=== PATIENT | female | born 1990 | race Caucasian/White ===

== ENCOUNTER 2016-09-19 12:51 | Emergency (ER) | payer OTHER ==
[~2016-09-19] VITALS: Ht 162.6 cm; Wt 76.4 kg
[~2016-09-19 12:51] MED LIST: PRENTAB26 PO; SERT50TA PO
[2016-09-19 12:58] VITALS: TEMP 36.8; Ht 162.6 cm; Wt 76.4 kg
[2016-09-19] MEDS ORDERED: FLUO20CA35 PO (13:05)
[2016-09-19] MEDS ORDERED: BUPR-79 PO (13:05)
[2016-09-19] MEDS ORDERED: KETOROLAC TROMETHAMINE 30 MG/ML VIAL IV STA (13:14)
[2016-09-19] MEDS ORDERED: ONDANSETRON INJ 2 MG/ML 2 ML VIAL IV STA (13:14)
[2016-09-19] MEDS ORDERED: SODIUM CHLORIDE 0.9% 1000ML 1,000 ML IV ONE (13:15)
[2016-09-19 13:45] LABS: BASO % 0.1 %; BASO ABS # 0.01 K/uL (0-0.2); COMPLETE YES; HEMATOCRIT 41.2 % (37-47); IG% 0.3 %; LYMPH % 31.3 %; LYMPH ABS # 2.18 K/uL (1.2-3.4); MEAN CELL VOLUME 83.4 fL (80-100); MEAN CORPUSCULAR HEMOGLOBIN 28.1 pg (25-34); MEAN CORPUSCULAR HGB CONC 33.7 g/dl (32-36); MEAN PLATELET VOLUME 10.5 fL (7.4-10.4); MONO % 7.8 %; NEUT % 59.5 %; PLATELET COUNT 269 K/uL (130-400); RED BLOOD COUNT 4.94 M/uL (4.2-5.4); WHITE BLOOD COUNT 6.96 K/uL (4.8-10.8)
[2016-09-19 14:02] LABS: BUN/CREATININE RATIO 12.8 (10-20); CALCIUM 9.3 mg/dl (8.5-10.1); CREATININE 0.69 mg/dl (0.60-1.20); POTASSIUM 4.1 mmol/L (3.5-5.1)
[2016-09-19 14:05] LABS: ALB/GLOB RATIO 1.1 (0.9-2)
--- NOTE | 2016-09-19 14:08 | DIAGNOSTIC IMAGING REPORT ---
KUB CLINICAL HISTORY: LLQ abd pain pain. Nausea. COMPARISON STUDY: No previous studies for comparison. FINDINGS: The soft tissues, psoas shadows, renal outlines and intestinal gas pattern appear normal. There is no evidence for bowel obstruction. No abnormal abdominal calcifications are seen. IMPRESSION: Normal study. Electronically signed by: Dante Mandujano M.D. 09/19/2016 2:06 PM Dictated Date/Time: 09/19/2016 2:06 PM
[2016-09-19 14:36] LABS: URINE APPEARANCE CLEAR (CLEAR); URINE BILIRUBIN NEG (NEG); URINE COLOR YELLOW; URINE NITRITE NEG (NEG); URINE PH 8.5 (4.5-7.5); URINE SPECIFIC GRAVITY 1.008 (1.000-1.030); UROBILINOGEN NEG (NEG); ZZUR CULT IF INDIC CLEAN CATCH NO
[2016-09-19 14:41] LABS: MANUAL MICROSCOPIC REQUIRED? NO; REVIEW REQ? NO
--- NOTE | 2016-09-19 15:33 | DIAGNOSTIC IMAGING REPORT ---
EXAMINATION: PELVIC ULTRASOUND CLINICAL HISTORY: LLQ abd pain PAIN COMPARISON STUDY: 07/22/2014 FINDINGS: The uterus measured 7.3 cm. The endometrial stripe measured 7 mm. The right ovary measured prior removal. The left ovary measured 3.8 cm maximum dimension. 1.7 cm follicular cyst. Normal vascular flow.. There is no ultrasonographic evidence of ovarian torsion. It should be noted that ovarian torsion can be present with normal Doppler ultrasonographic findings. There was no evidence of pathologic free pelvic fluid. IMPRESSION: 1. 1.7 cm follicular cyst left ovary. 2. Otherwise negative pelvic ultrasound post right ovarian removal Electronically signed by: Dante Mandujano M.D. 09/19/2016 3:31 PM Dictated Date/Time: 09/19/2016 3:30 PM
[2016-09-19] MEDS ORDERED: HYDR-5688 PO (15:53)
[2016-09-19 16:03] VITALS: BP 120/65; PULSE 68; O2SAT 97
--- NOTE | 2016-09-19 21:52 | EMERGENCY ROOM VISIT NOTE ---
History First contact with patient: 13:02 Chief Complaint: ABDOMINAL PAIN Stated Complaint: PAIN IN LOWER L STOMACH, DIZZY Nursing Triage Summary: Pt presents with left lower abd pain x 1 month. "I track my fertility and the pain would coordinate with when my body was trying to ovulate. I only have one ovary and it's on that side." Nausea, dizziness. History of Present Illness The patient is a 26 year old female who presents to the Emergency Room with complaints of pain in the left lower aspect of her abdomen for the past one month. The patient has a history of ovarian cysts and had a right oophorectomy a few years ago. The patient states that her discomfort does wax and wane, and may be related to her period. The patient is nauseated without vomiting. She is not having vaginal drainage or discharge. She has not taken anything over- the-counter for her symptoms. Review of Systems More than 10 systems were reviewed and otherwise negative with the exception of history of present illness. Past Medical/Surgical History Medical Problems: (1) Ovarian cyst, left Family History Cancer Heart disease Hypertension Lung disease Social History Smoking Status: Never Smoker Alcohol Use: occasionally Marital Status: Housing Status: lives with significant other Occupation Status: employed Current/Historical Medications Scheduled Bupropion (Wellbutrin Sr), 150 MG PO DAILY Fluoxetine (Prozac), 30 MG PO QAM Scheduled PRN Hydrocodone/Acetaminophen 5MG/325MG (Virden 5MG/325MG), 1 TABLET PO Q6 PRN for Pain Allergies Coded Allergies: Penicillins (Verified Allergy, Intermediate, SWELLING, 03/04/15) Cefprozil (Verified Allergy, Unknown, ., 07/22/14) Physical Exam Vital Signs Date Time Temp Pulse Resp B/P Pulse Ox O2 Delivery O2 Flow Rate FiO2 09/19/16 16:03 68 18 120/65 97 Room Air 09/19/16 14:50 70 16 120/65 98 Room Air 09/19/16 12:58 36.8 75 18 123/82 98 Room Air Pain Rating (0-10): 2.0 Physical Exam VITALS: Vitals are noted on the nurse's note and reviewed by myself. Vital signs stable. GENERAL: Well-developed, well-nourished, white female, who is in no acute distress and resting comfortably. Patient is cooperative with the examination. HEAD: Normocephalic atraumatic. NECK: Supple without nuchal rigidity. No lymphadenopathy. No thyromegaly. Cervical spine is nontender. HEART: Regular rate and rhythm without murmurs gallops or rubs. LUNGS: Clear to auscultation bilaterally without wheezes, rales or rhonchi. No retractions or accessory muscle use. ABDOMEN: Positive normal bowel sounds x 4. Soft with mild left lower quadrant tenderness on palpation. No guarding. No CVA tenderness. MUSCULOSKELETAL: No muscle atrophy, erythema, or edema noted. Full range of motion without joint tenderness in all extremities Medical Decision & Procedures ER Provider Diagnostic Interpretation: KUB CLINICAL HISTORY: LLQ abd pain pain. Nausea. COMPARISON STUDY: No previous studies for comparison. FINDINGS: The soft tissues, psoas shadows, renal outlines and intestinal gas pattern appear normal. There is no evidence for bowel obstruction. No abnormal abdominal calcifications are seen. IMPRESSION: Normal study. EXAMINATION: PELVIC ULTRASOUND CLINICAL HISTORY: LLQ abd pain PAIN COMPARISON STUDY: 07/22/2014 FINDINGS: The uterus measured 7.3 cm. The endometrial stripe measured 7 mm. The right ovary measured prior removal. The left ovary measured 3.8 cm maximum dimension. 1.7 cm follicular cyst. Normal vascular flow.. There is no ultrasonographic evidence of ovarian torsion. It should be noted that ovarian torsion can be present with normal Doppler ultrasonographic findings. There was no evidence of pathologic free pelvic fluid. IMPRESSION: 1. 1.7 cm follicular cyst left ovary. 2. Otherwise negative pelvic ultrasound post right ovarian removal Laboratory Results 09/19/16 13:30 Red Blood Count 4.94, Mean Corpuscular Volume 83.4, Mean Corpuscular Hemoglobin 28.1, Mean Corpuscular Hemoglobin Concent 33.7, Mean Platelet Volume 10.5, Neutrophils (%) (Auto) 59.5, Lymphocytes (%) (Auto) 31.3, Monocytes (%) (Auto) 7.8, Eosinophils (%) (Auto) 1.0, Basophils (%) (Auto) 0.1, Neutrophils # (Auto) 4.14, Lymphocytes # (Auto) 2.18, Monocytes # (Auto) 0.54, Eosinophils # (Auto) 0.07, Basophils # (Auto) 0.01 09/19/16 13:30 Test 09/19/16 13:30 White Blood Count 6.96 K/uL (4.8-10.8) Red Blood Count 4.94 M/uL (4.2-5.4) Hemoglobin 13.9 g/dL (12.0-16.0) Hematocrit 41.2 % (37-47) Mean Corpuscular Volume 83.4 fL (80-100) Mean Corpuscular Hemoglobin 28.1 pg (25-34) Mean Corpuscular Hemoglobin Concent 33.7 g/dl (32-36) Platelet Count 269 K/uL (130-400) Mean Platelet Volume 10.5 fL (7.4-10.4) Neutrophils (%) (Auto) 59.5 % Lymphocytes (%) (Auto) 31.3 % Monocytes (%) (Auto) 7.8 % Eosinophils (%) (Auto) 1.0 % Basophils (%) (Auto) 0.1 % Neutrophils # (Auto) 4.14 K/uL (1.4-6.5) Lymphocytes # (Auto) 2.18 K/uL (1.2-3.4) Monocytes # (Auto) 0.54 K/uL (0.11-0.59) Eosinophils # (Auto) 0.07 K/uL (0-0.5) Basophils # (Auto) 0.01 K/uL (0-0.2) RDW Standard Deviation 40.9 fL (36.4-46.3) RDW Coefficient of Variation 13.4 % (11.5-14.5) Immature Granulocyte % (Auto) 0.3 % Immature Granulocyte # (Auto) 0.02 K/uL (0.00-0.02) Urine Color YELLOW Urine Appearance CLEAR (CLEAR) Urine pH 8.5 (4.5-7.5) Urine Specific [place] 1.008 (1.000-1.030) Urine Protein NEG (NEG) Urine Glucose (UA) NEG (NEG) Urine Ketones NEG (NEG) Urine Occult Blood NEG (NEG) Urine Nitrite NEG (NEG) Urine Bilirubin NEG (NEG) Urine Urobilinogen NEG (NEG) Urine Leukocyte Esterase NEG (NEG) Urine Test NEG (NEG) Anion Gap 8.0 mmol/L (3-11) Est Creatinine Clear Calc Drug Dose 122.6 ml/min Estimated GFR () 138.3 Estimated GFR (Non- 119.3 BUN/Creatinine Ratio 12.8 (10-20) Calcium Level 9.3 mg/dl (8.5-10.1) Total Bilirubin 0.3 mg/dl (0.2-1) Aspartate Amino Transf (AST/SGOT) 11 U/L (15-37) Alanine Aminotransferase (ALT/SGPT) 19 U/L (12-78) Alkaline Phosphatase 96 U/L (45-117) Total Protein 7.5 gm/dl (6.4-8.2) Albumin 3.9 gm/dl (3.4-5.0) Globulin 3.6 gm/dl (2.5-4.0) Albumin/Globulin Ratio 1.1 (0.9-2) Medications Administered Medications (Trade) Dose Ordered Sig/Torie Route Start Time Stop Time Status Last Admin Dose Admin Sodium Chloride (Nss 1000ml) 1,000 ml @ 999 mls/hr Q1H1M ONCE IV 09/19/16 13:15 09/19/16 14:15 DC 09/19/16 13:15 999 MLS/HR Ketorolac Tromethamine (Toradol Inj) 30 mg NOW STAT IV 09/19/16 13:14 09/19/16 13:18 DC 09/19/16 13:46 30 MG Ondansetron HCl (Zofran Inj) 4 mg NOW STAT IV 09/19/16 13:14 09/19/16 13:18 DC 09/19/16 13:45 4 MG ED Course Physical exam and history were performed. Nursing notes and EMR were reviewed. Patient appears to have left lower quadrant abdominal pain for the past month. On exam she does not present like a distinct surgical abdomen. IV access was established and labs were obtained. Patient was hydrated with a as above. I did elect to perform an ultrasound and KUB to evaluate the patient's symptoms. The patient's blood work is as above and was reviewed. She does not have a slightly elevated white blood cell count, gross anemia, bandemia, or significant ocular imbalance. X-ray does not show evidence of an obstructive process. Ultrasound does reveal a left ovarian cyst, which clinically correlates very well with the patient's symptoms. Repeat abdominal examination does not show any worsening or progression of the patient's symptoms. She is overall felt to be stable for discharge home. I recommend she follow with either her primary care physician or with [facility] for further management. She was given further discharge instructions as below and otherwise invited back to the ER with any new, worsening, or concerning symptoms. The chart was completed utilizing [employer] Voice Recognition Software. Grammatical errors, random word insertions, pronoun errors, and incomplete sentences are an occasional consequence of this system due to software limitations, ambient noise, and hardware issues. Any formal questions or concerns about the content, text, or information contained within the body of this dictation should be directly addressed to the provider for clarification. . Medical Decision Differential diagnosis: Etiologies such as appendicitis, diverticulitis, PUD, biliary pathology, UTI, pancreatitis, obstruction, mesenteric ischemia, aortic pathology, infections, inflammatory bowel disease, renal colic, as well as others were entertained. Impression Primary Impression: Left ovarian cyst Departure Information Dispostion Home / Self-Care Condition GOOD Prescriptions Hydrocodone/Acetaminophen 5MG/325MG (Virden 5MG/325MG) Tab 1 TABLET PO Q6 Y for Pain, #12 TAB For Initial Treatment Prov: Marvin Downey PA-C 09/19/16 Forms HOME CARE DOCUMENTATION FORM, IMPORTANT VISIT INFORMATION Patient Instructions My [facility] Additional Instructions You were seen and evaluated today on an emergency basis only. This is not a substitute for, or an effort to provide, complete comprehensive medical care. It is not possible to recognize and treat all injuries or illnesses in a single emergency department visit. For this reason it is recommended that you followup with your primary care physician or [facility] for ongoing care and evaluation. Please follow-up in the next week. For baseline pain relief you may alternate ibuprofen and acetaminophen every 4 hours for pain control. Take 600 mg ibuprofen (Advil) and then 4 hours later take 1000 mg acetaminophen (Tylenol). Do not take more than 3000 mg acetaminophen in a single day. Virden (hydrocodone/acetaminophen) 5/325 mg every 6 hours as needed for worsening breakthrough pain. Do not drink or drive on V[place]. This medication will likely make you tired. Do not take Virden and Tylenol at the same time as both contain acetaminophen. Virden may cause constipation. You may wish to take an [id number] stool softener like Colace if this occurs. You are welcome to return to the emergency department anytime with new, worsening, or concerning symptoms.
== END 2016-09-19 16:03 | disposition home or self-care (01) ==
LOC: C.EDB 12:51 → C.EDC 16:03
DX: N83.202 Unspecified ovarian cyst, left side (principal); Z82.49 Family history of ischemic heart disease and other diseases of the circulatory system; Z90.721 Acquired absence of ovaries, unilateral

== ENCOUNTER → 2016-12-11 | Outpatient (CLI) | payer OTHER ==
[~2016-12-11] MED LIST changes: +BUPR-79 PO; +FLUO20CA35 PO; +HYDR-5688 PO; -PRENTAB26 PO; -SERT50TA PO
[2016-12-11 16:10] LABS: THYROID STIMULATING HORMONE 2.43 uIu/ml (0.300-4.500)
== END | disposition home or self-care (01) ==
LOC: C.LAB1850 14:22
PROVIDERS: ATTEND Psychiatry & Neurology Psychiatry
DX: Z79.899 Other long term (current) drug therapy (principal)

== ENCOUNTER → 2017-07-14 | Outpatient (CLI) | payer OTHER ==
[~2017-07-14] MED LIST changes: -HYDR-5688 PO
[2017-07-14 15:38] LABS: BASO % 0.2 %; BASO ABS # 0.02 K/uL (0-0.2); EOS % 0.8 %; EOS ABS # 0.07 K/uL (0-0.5); HEMATOCRIT 42.9 % (37-47); HEMOGLOBIN 14.5 g/dL (12.0-16.0); IG# 0.02 K/uL (0.00-0.02); LYMPH % 33.7 %; LYMPH ABS # 2.97 K/uL (1.2-3.4); MEAN CELL VOLUME 85.3 fL (80-100); MEAN CORPUSCULAR HEMOGLOBIN 28.8 pg (25-34); MEAN CORPUSCULAR HGB CONC 33.8 g/dl (32-36); MEAN PLATELET VOLUME 10.6 fL (7.4-10.4); MONO % 6.9 %; MONO ABS # 0.61 K/uL (0.11-0.59); NEUT % 58.2 %; NEUT ABS # 5.13 K/uL (1.4-6.5); PLATELET COUNT 274 K/uL (130-400); RED CELL DISTRIBUTION WIDTH CV 13.3 % (11.5-14.5); RED CELL DISTRIBUTION WIDTH SD 41.3 fL (36.4-46.3); WHITE BLOOD COUNT 8.82 K/uL (4.8-10.8)
[2017-07-14 17:39] LABS: CREATININE 0.73 mg/dl (0.60-1.20)
== END | disposition home or self-care (01) ==
LOC: C.LAB1850 14:45
PROVIDERS: ATTEND Psychiatry & Neurology Psychiatry
DX: Z51.81 Encounter for therapeutic drug level monitoring (principal); Z79.899 Other long term (current) drug therapy

== ENCOUNTER → 2017-07-27 | Outpatient (CLI) | payer OTHER | END | disposition home or self-care (01) | LOC: C.LAB1850 11:56 | PROVIDERS: ATTEND Psychiatry & Neurology Psychiatry | DX: Z79.899 Other long term (current) drug therapy (principal) ==

== ENCOUNTER → 2017-08-05 | Outpatient (CLI) | payer OTHER | END | disposition home or self-care (01) | LOC: C.LAB1850 08:36 | PROVIDERS: ATTEND Psychiatry & Neurology Psychiatry | DX: Z79.899 Other long term (current) drug therapy (principal) ==

== ENCOUNTER → 2017-08-13 | Outpatient (CLI) | payer OTHER | END | disposition home or self-care (01) | LOC: C.LAB1850 09:54 | PROVIDERS: ATTEND Psychiatry & Neurology Psychiatry | DX: Z79.899 Other long term (current) drug therapy (principal) ==

== ENCOUNTER → 2017-11-19 | Outpatient (CLI) | payer OTHER | END | disposition home or self-care (01) | LOC: C.PAPS 16:43 | PROVIDERS: ATTEND Obstetrics & Gynecology | DX: Z12.4 Encounter for screening for malignant neoplasm of cervix (principal) ==